=== PATIENT | male | born 1940 | race Caucasian/White ===

== ENCOUNTER 2016-04-11 10:05 | Inpatient (IN) | payer OTHER, MEDICARE ==
[~2016-04-11] VITALS: Ht 183.4 cm; Wt 95.2 kg
[~2016-04-11 10:05] MED LIST: ATEN1TAB73 PO; CALC500 PO; PRAV10 PO
[2016-04-11 10:32] VITALS: BP 139/80; PULSE 87; RESP 16; TEMP 98; O2SAT 98
[2016-04-11] MEDS ORDERED: SODIUM CHLOR 0.9% 1000 ML INJ 1,000 ML IV SCH (11:18)
--- NOTE | 2016-04-11 11:21 | PD ---
HPI Chief Complaint: GI Complaint Time Seen by Provider: 11:10 Travel History International Travel<30 days: No Contact w/Intl Traveler<30days: No Traveled to known affect area: No History of Present Illness HPI This is a 75-year-old male who has a history of ulcerative colitis and GERD who presents to the emergency department with 1 month of increasing bloody stools, reporting that he's been having 5-10 bloody stools per day, constant, moderate severity. He says that he has been increasingly lightheaded and dizzy with worsening fatigue. He has had some lower abdominal cramping. He hasn't been able to eat or drink much in the last week. He says that at night he also is having epigastric discomfort which is keeping him awake. He says this feels like his GERD. He follows with Dr. Burgos who lasted a "scope", he is not sure if it was upper or lower, in January. He currently is on prednisone but he says is not helping. He denies any nausea, vomiting, fevers or chills. He says he lost 40 pounds in the past year. PFSH Past Medical History Arthritis: Yes Asthma: No Autoimmune Disease: No Blood Disorders: No Cancer: No Cardiac Catheterization: Yes Cardiovascular Problems: Yes High Cholesterol: Yes Chest Pain: Yes COPD: No Diabetes: No Diminished Hearing: Yes (HEARING AIDES) Gastrointestinal Disorders: No Glaucoma: No Hypertension: Yes Neurologic: No Psychiatric: No Reproductive: No Respiratory: No Thyroid Disease: No PNEUMOCCOCAL Vaccine (Year): 2 Past Surgical History Cardiac Surgery: Yes (cardiac cath ) Joint Replacement: Yes (BILATERAL KNEE) Pacemaker: No Tonsillectomy: Yes Social History Alcohol Use: No Tobacco Use: No Substance Use: No Allergies-Medications (Allergen,Severity, Reaction): Coded Allergies: Iodine (Verified Allergy, Severe, SHELLFISH = ITCHING, 04/11/16) Reported Meds & Prescriptions Reported Meds & Active Scripts Active Reported [Suceavatell] 1 Gm PO BID Prednisone 20 Mg Tab 20 Mg PO BID [Omnipresol] 20 Mg PO BID Asacol HD (Mesalamine) 800 Mg Tab 1,600 Mg PO QID Swallow whole. Take on an empty stomach. Tenormin (Atenolol) 25 Mg Tab 25 Mg PO DAILY Review of Systems Except as stated in HPI: all other systems reviewed are Neg Physical Exam Narrative GENERAL: Chronically unwell-appearing. SKIN: Dry with skin tenting. HEAD: Atraumatic. Normocephalic. EYES: Pupils equal and round. No injection or drainage. ENT: Dry mucous membranes. NECK: Trachea midline. CARDIOVASCULAR: Regular rate and rhythm. No murmur appreciated. RESPIRATORY: Clear to auscultation. Breath sounds equal bilaterally. GASTROINTESTINAL: Abdomen soft, non-tender, nondistended. MUSCULOSKELETAL: No obvious deformities. NEUROLOGICAL: Awake and alert. No obvious cranial nerve deficits. Moving all extremities. PSYCHIATRIC: Appropriate mood and affect; insight and judgment normal. Data Data Last Documented VS Vital Signs Date Time Temp Pulse Resp B/P Pulse Ox O2 Delivery O2 Flow Rate FiO2 04/11/16 11:33 99 Room Air 04/11/16 10:32 98.0 87 16 139/80 Orders Complete Blood Count With Diff (04/11/16 11:18) Comprehensive Metabolic Panel (04/11/16 11:18) Lactic Acid (04/11/16 11:18) Prothrombin Time / Inr (Pt) (04/11/16 11:18) Act Partial Throm Time (Ptt) (04/11/16 11:18) Urinalysis - C+S If Indicated (04/11/16 11:18) Iv Access Insert/Monitor (04/11/16 11:18) Ecg Monitoring (04/11/16 11:18) Oximetry (04/11/16 11:18) Sodium Chlor 0.9% 1000 Ml Inj (Ns 1000 M (04/11/16 11:18) Sodium Chloride 0.9% Flush (Ns Flush) (04/11/16 11:30) Electrocardiogram (04/11/16 ) Troponin I (04/11/16 11:18) Type And Screen (04/11/16 11:18) Ciprofloxacin 400 Mg Premix (Cipro 400 M (04/11/16 12:45) Metronidazole 500 Mg Inj (Flagyl 500 Mg (04/11/16 12:45) Methylprednisolone So Succ Inj (Solumedr (04/11/16 12:45) Admit Order (Ed Use Only) (04/11/16 12:45) Labs Laboratory Tests Test 04/11/16 04/11/16 04/11/16 11:59 12:03 12:14 White Blood Count 15.1 TH/MM3 Red Blood Count 3.84 MIL/MM3 Hemoglobin 9.8 GM/DL Hematocrit 29.8 % Mean Corpuscular Volume 77.7 FL Mean Corpuscular Hemoglobin 25.5 PG Mean Corpuscular Hemoglobin 32.8 % Concent Red Cell Distribution Width 15.5 % Platelet Count 582 TH/MM3 Mean Platelet Volume 7.2 FL Neutrophils (%) (Auto) 93.3 % Lymphocytes (%) (Auto) 3.2 % Monocytes (%) (Auto) 1.8 % Eosinophils (%) (Auto) 0.0 % Basophils (%) (Auto) 1.7 % Neutrophils # (Auto) 14.0 TH/MM3 Lymphocytes # (Auto) 0.5 TH/MM3 Monocytes # (Auto) 0.3 TH/MM3 Eosinophils # (Auto) 0.0 TH/MM3 Basophils # (Auto) 0.3 TH/MM3 CBC Comment DIFF FINAL Differential Comment Prothrombin Time 11.1 SEC Prothromb Time International 1.0 RATIO Ratio Activated Partial 25.4 SEC Thromboplast Time Sodium Level 139 MEQ/L Potassium Level 4.1 MEQ/L Chloride Level 105 MEQ/L Carbon Dioxide Level 25.5 MEQ/L Anion Gap 9 MEQ/L Blood Urea Nitrogen 15 MG/DL Creatinine 0.97 MG/DL Estimat Glomerular Filtration 76 ML/MIN Rate Random Glucose 105 MG/DL Calcium Level 8.1 MG/DL Total Bilirubin 0.4 MG/DL Aspartate Amino Transf 8 U/L (AST/SGOT) Alanine Aminotransferase 12 U/L (ALT/SGPT) Alkaline Phosphatase 54 U/L Troponin I 0.10 NG/ML Total Protein 6.2 GM/DL Albumin 2.6 GM/DL Lactic Acid Level 1.5 mmol/L Urine Collection Type CLEAN CATCH Urine Color YELLOW Urine Turbidity CLEAR Urine pH 6.0 Urine Specific [place] 1.008 Urine Protein NEG mg/dL Urine Glucose (UA) NEG mg/dL Urine Ketones NEG mg/dL Urine Occult Blood NEG Urine Nitrite NEG Urine Bilirubin NEG Urine Leukocyte Esterase NEG Urine RBC 0-3 /hpf Urine Squamous Epithelial 0-5 /hpf Cells Microscopic Urinalysis Comment CULT NOT INDICATED Urine Collection Time 12:14 [facility] Medical Decision Making Medical Screen Exam Complete: Yes Emergency Medical Condition: Yes Medical Record Reviewed: Yes (patient has had a mildly elevated troponin of 0.11 to .13 back in 2003) Interpretation(s) Afebrile, no tachycardia, normotensive Leukocytosis with left shift Hemoglobin is 9.8 Thrombocytosis Electrolytes are reassuring Troponin is 0.1 Lactic acid is 1.5 Urinalysis demonstrates infection Differential Diagnosis Ulcerative colitis, anemia, gastritis, peptic ulcer disease, sepsis, dehydration Narrative Course This is an unfortunate 75-year-old male who has a history of severe ulcerative colitis who presents to the emergency department with persistent loose bloody stools and poor oral intake. He says that he has been increasingly weak and lethargic over the past week and he has been unable to eat or drink. He was placed on a monitor and an IV was established. Labs were obtained which demonstrated a leukocytosis likely in the setting of prednisone. He is also anemic with a hemoglobin of 9.8. I think the patient requires IV steroids, GI consultation and admission for IV hydration given his age and male appearance. I spoke to Dr. Franklin who will admit the patient under the [facility] service. Physician Communication Physician Communication Discussed with Dr. Franklin Diagnosis Primary Impression: Ulcerative colitis Qualified Code: K51.911 - Ulcerative colitis with rectal bleeding, unspecified location Admitting Information Admitting Physician Requests: Admit Rosalie Brennan MD Apr 11, 2016 11:21
[2016-04-11] MEDS ORDERED: SODIUM CHLORIDE 0.9% FLUSH 5 ML FLUSH IVF PRN (11:30)
[2016-04-11 11:33] VITALS: O2SAT 99
[2016-04-11] MEDS ORDERED: PRED20 PO (11:43)
[2016-04-11] MEDS ORDERED: [UNRECOGNIZED DRUG - OTHER] PO (11:43)
[2016-04-11] MEDS ORDERED: ASAC800T PO (11:43)
[2016-04-11] MEDS ORDERED: ATEN1TAB73 PO (11:43)
[2016-04-11] MEDS ORDERED: [UNRECOGNIZED DRUG - OTHER] PO (11:43)
[2016-04-11 12:19] LABS: BASOPHIL # 0.3 TH/MM3 (0-0.2); BASOPHIL % 1.7 % (0.0-2.0); HEMATOCRIT 29.8 % (39.0-51.0); LYMPH % 3.2 % (9.0-44.0); LYMPHOCYTE # 0.5 TH/MM3 (1.0-4.8); MEAN CELL VOLUME 77.7 FL (80.0-100.0); MEAN CORPUSCULAR HEMOGLOBIN 25.5 PG (27.0-34.0); MEAN CORPUSCULAR HGB CONC 32.8 % (32.0-36.0); MONO % 1.8 % (0.0-8.0); NEUT % 93.3 % (16.0-70.0); PLATELET COUNT 582 TH/MM3 (150-450); RED BLOOD COUNT 3.84 MIL/MM3 (4.50-5.90); RED CELL DISTRIBUTION WIDTH 15.5 % (11.6-17.2); WHITE BLOOD COUNT 15.1 TH/MM3 (4.0-11.0)
[2016-04-11 12:20] LABS: HEMO FLAGS DIFF FINAL
[2016-04-11 12:22] LABS: BLOOD, URINE NEG (NEG); GLUCOSE,URINE NEG (NEG); KETONE, URINE NEG (NEG); NITRITE,URINE NEG (NEG)
[2016-04-11 12:27] LABS: COMMENT (UR) CULT NOT INDICATED; CULTURE IF INDICATED CULT NOT INDICATED; METHOD OF COLLECTION CLEAN CATCH; RBC, URINE 0-3 /hpf (0-3); SQUAMOUS EPITHELIAL CELL URINE 0-5 /hpf (0-5); URINE COLOR YELLOW (YELLW/STRAW)
[2016-04-11 12:28] LABS: CHLORIDE 105 MEQ/L (98-107); POTASSIUM 4.1 MEQ/L (3.5-5.1); SODIUM (NA) 139 MEQ/L (136-145)
[2016-04-11 12:31] LABS: ANION GAP 9 MEQ/L (5-15); BICARBONATE 25.5 MEQ/L (21.0-32.0); BLOOD UREA NITROGEN 15 MG/DL (7-18)
[2016-04-11 12:33] LABS: APTT (PATIENT) 25.4 SEC (24.3-30.1); PROTHROMBIN TIME - PATIENT 11.1 SEC (9.8-11.6)
[2016-04-11 12:34] LABS: ALT (GPT) 12 U/L (12-78); AST (GOT) 8 U/L (15-37)
[2016-04-11 12:35] LABS: GLOMERULAR FILTRATION RATE 76 ML/MIN (>89)
[2016-04-11 12:36] LABS: TOTAL BILIRUBIN ADULT 0.4 MG/DL (0.2-1.0)
[2016-04-11 12:37] LABS: ALKALINE PHOSPHATASE 54 U/L (45-117)
[2016-04-11] MEDS ORDERED: methylPREDNISolone SOD SUCC 125 MG/2 ML VIAL IV PUSH ONE (12:45)
[2016-04-11] MEDS ORDERED: CIPROFLOXACIN 400 MG PREMIX 200 ML IV ONE (12:45)
[2016-04-11] MEDS ORDERED: metroNIDAZOLE 500 MG INJ 100 ML IV ONE (12:45)
[2016-04-11] MEDS ORDERED: ONDANSETRON HCL 4 MG/2 ML VIAL IV PRN (13:15)
[2016-04-11] MEDS ORDERED: SODIUM CHLORIDE 0.9% FLUSH 5 ML FLUSH FLUSH PRN (13:15)
[2016-04-11 16:00] VITALS: BP 160/70; PULSE 86; RESP 18; TEMP 98.2; O2SAT 95
--- NOTE | 2016-04-11 16:05 | HHI.HP ---
HPI Service [facility] Hospitalists Primary Care Physician Isreal Jade MD Admission Diagnosis ulcerative colitis Chief Complaint: bloody stool, weight loss, UC flare Travel History International Travel<30 Days: No Contact w/Intl Traveler <30 Da: No Traveled to Known Affected Are: No History of Present Illness This is a 75-year-old male who has a history of ulcerative colitis diagnosed approximately 25 years ago and GERD who presents to the emergency department with 1 month of increasing bloody stools, reporting that he's been having 5-10 bloody stools per day, constant, moderate severity. He says that he has been increasingly lightheaded and dizzy with worsening fatigue. He has had some lower abdominal cramping and actually more reflux lately as well. He hasn't been able to eat or drink much in the last week. He says that at night he also is having epigastric discomfort which is keeping him awake. The loose stools actually awaken him at night as well. The blood in the stool seems to be worse at night and less during the day. He follows with Dr. Burgos in [place] for GI issues. He reportedly has been referred to [facility] due to refractory ulcerative colitis and GERD.. He currently is on prednisone and Asacol but he says is not helping. He denies any nausea, vomiting, fevers or chills. He says he lost 40 pounds in the past year. No hemoptysis or hematemesis. No fevers or chills. Review of some of his outpatient labs from February revealed CRP in the 70s. Review of Systems Constitutional: COMPLAINS OF: Fatigue, Weight loss, Dizziness, DENIES: Diaphoretic episodes, Fever, Weight gain, Chills, Change in appetite, Night Sweats Eyes: DENIES: Blurred vision, Diplopia, Eye inflammation, Eye pain, Vision loss , Photosensitivity, Double Vision Ears, nose, mouth, throat: DENIES: Tinnitus, Hearing loss, Vertigo, Nasal discharge, Oral lesions, Throat pain, Hoarseness, Ear Pain, Running Nose, Epistaxis, Sinus Pain, Toothache, Odynophagia Respiratory: DENIES: Apneas, Cough, Snoring, Wheezing, Hemoptysis, Sputum production, Shortness of breath Cardiovascular: COMPLAINS OF: Dyspnea on Exertion, DENIES: Chest pain, Palpitations, Syncope, PND, Lower Extremity Edema, Orthopnea, Claudication Gastrointestinal: COMPLAINS OF: Abdominal pain, Bloody stools, BRB per rectum, Diarrhea, GERD, Nausea, Reflux, DENIES: Black stools, Constipation, Vomiting, Difficulty Swallowing, Anorexia, See HPI Musculoskeletal: COMPLAINS OF: Joint pain Integumentary: DENIES: Abnormal pigmentation, Nail changes, Pruritus, Rash Hematologic/lymphatic: DENIES: Bruising, Lymphadenopathy Immunologic/allergic: DENIES: Eczema, Urticaria Neurologic: DENIES: Abnormal gait, Headache, Localized weakness, Paresthesias, Seizures, Speech Problems, Tremor, Poor Balance Psychiatric: DENIES: Anxiety, Confusion, Mood changes, Depression, Hallucinations, Agitation, Suicidal Ideation, Homicidal Ideation, Delusions, History of Bipolar, History of Schizophrenia Past Family Social History Past Medical History Ulcerative colitis GERD Lumbar degenerative disc disease Osteoarthritis Hypertension Past Surgical History Bilateral total knee arthroplasty around 1994 Squamous cell carcinoma removed from the right posterior neck with subsequent radiation therapy and then in May 2015 at [facility] Lumbar disc surgery in 2015 Multiple colonoscopies and EGDs with most recent done in late 2015 per his report. Reported Medications Sucralfate 1 Gm PO BID Prednisone 20 Mg Tab 20 Mg PO BID Prilosec 20 Mg PO BID Asacol HD (Mesalamine) 800 Mg Tab 1,600 Mg PO QID Swallow whole. Take on an empty stomach. Tenormin (Atenolol) 25 Mg Tab 25 Mg PO DAILY Allergies: Coded Allergies: Iodine (Verified Allergy, Severe, SHELLFISH = ITCHING, 04/11/16) Family History No history of colitis or colon cancer Brother in his mid 50s of an abdominal aortic aneurysm Social History Denies Tobacco, alcohol or illicit drugs Visit his that admitted for 30 years is his third marriage Previously was an air navigator in the but retired from [employer] Originally from [place] Physical Exam Vital Signs Vital Signs Date Time Temp Pulse Resp B/P Pulse Ox O2 Delivery O2 Flow Rate FiO2 04/11/16 11:33 99 Room Air 04/11/16 10:32 98.0 87 16 139/80 98 Physical Exam GENERAL: This is a well-nourished, well-developed patient, in no apparent distress. Quite pleasant and jovial. SKIN: No rashes, ecchymoses or lesions. Cool and dry. Right posterior neck with postsurgical scarring. HEAD: Atraumatic. Normocephalic. No temporal or scalp tenderness. EYES: Pupils equal round and reactive. Extraocular motions intact. No scleral icterus. No injection or drainage. ENT: Nose without bleeding, purulent drainage or septal hematoma. Airway patent. NECK: Trachea midline. No JVD or lymphadenopathy. Supple, nontender, no meningeal signs. Right posterior neck as noted. CARDIOVASCULAR: Regular rate and rhythm without murmurs, gallops, or rubs. RESPIRATORY: Clear to auscultation. Breath sounds equal bilaterally. No wheezes , rales, or rhonchi. GASTROINTESTINAL: Abdomen soft, nondistended. Slight tenderness to palpation in lower abdomen. Bowel sounds slightly hyperactive. No hepato-splenomegaly, or palpable masses. No guarding. MUSCULOSKELETAL: Extremities without clubbing, cyanosis, or edema. No joint tenderness, effusion, or edema noted. No calf tenderness. NEUROLOGICAL: Awake and alert. Cranial nerves II through XII intact. Motor and sensory grossly within normal limits. Five out of 5 muscle strength in all muscle groups. Normal speech. Laboratory Laboratory Tests Test 04/11/16 04/11/16 04/11/16 04/11/16 11:59 12:03 12:05 12:14 White Blood Count 15.1 Red Blood Count 3.84 Hemoglobin 9.8 Hematocrit 29.8 Mean Corpuscular Volume 77.7 Mean Corpuscular Hemoglobin 25.5 Mean Corpuscular Hemoglobin 32.8 Concent Red Cell Distribution Width 15.5 Platelet Count 582 Mean Platelet Volume 7.2 Neutrophils (%) (Auto) 93.3 Lymphocytes (%) (Auto) 3.2 Monocytes (%) (Auto) 1.8 Eosinophils (%) (Auto) 0.0 Basophils (%) (Auto) 1.7 Neutrophils # (Auto) 14.0 Lymphocytes # (Auto) 0.5 Monocytes # (Auto) 0.3 Eosinophils # (Auto) 0.0 Basophils # (Auto) 0.3 CBC Comment DIFF FINAL Differential Comment Prothrombin Time 11.1 Prothromb Time International 1.0 Ratio Activated Partial 25.4 Thromboplast Time Sodium Level 139 Potassium Level 4.1 Chloride Level 105 Carbon Dioxide Level 25.5 Anion Gap 9 Blood Urea Nitrogen 15 Creatinine 0.97 Estimat Glomerular Filtration 76 Rate Random Glucose 105 Calcium Level 8.1 Total Bilirubin 0.4 Aspartate Amino Transf 8 (AST/SGOT) Alanine Aminotransferase 12 (ALT/SGPT) Alkaline Phosphatase 54 Troponin I 0.10 Total Protein 6.2 Albumin 2.6 Lactic Acid Level 1.5 Blood Type A NEGATIVE Antibody Screen NEGATIVE Urine Collection Type CLEAN CATCH Urine Color YELLOW Urine Turbidity CLEAR Urine pH 6.0 Urine Specific [place] 1.008 Urine Protein NEG Urine Glucose (UA) NEG Urine Ketones NEG Urine Occult Blood NEG Urine Nitrite NEG Urine Bilirubin NEG Urine Leukocyte Esterase NEG Urine RBC 0-3 Urine Squamous Epithelial 0-5 Cells Microscopic Urinalysis Comment CULT NOT INDICATED Urine Collection Time 12:14 Result Diagram: 04/11/16 1159 04/11/16 1159 Assessment and Plan Problem List: (1) Ulcerative colitis Status: Chronic Plan: Patient with acute flare of chronic ulcerative colitis. He has been losing blood and has symptomatic anemia reportedly. His hemoglobin is approximately 1 unit lower than it was a month ago. We'll have GI see the patient. Follow hemoglobin. Vital signs stable. Reportedly has been referred to [facility] (2) GERD (gastroesophageal reflux disease) Status: Chronic Plan: Continue PPI and Carafate. GI to see the patient. (3) Hypertension Status: Chronic Plan: Good control. Continue medication. Code Status Full Discussed Condition With Patient Physician Certification 2 Midnight Certification Type: Admission for Inpatient Services Order for Inpatient Services The services are ordered in accordance with Medicare regulations or non- Medicare payer requirements, as applicable. In the case of services not specified as inpatient-only, they are appropriately provided as inpatient services in accordance with the 2-midnight benchmark. Estimated LOS (days): 2 days is the estimated time the patient will need to remain in the hospital, assuming treatment plan goals are met and no additional complications. Post-Hospital Plan: Home Problem Qualifiers (1) Ulcerative colitis: Qualified Code: K51.911 - Ulcerative colitis with rectal bleeding, unspecified location (2) Hypertension: Qualified Code: I10 - Essential hypertension Diego Franklin PhD Apr 11, 2016 16:05
[2016-04-11] MEDS: MESALAMINE HD 800 MG DELAYED RELEASE TAB PO SCH ×2 (17:36→21:00)
[2016-04-11 20:00] VITALS: BP 146/80; PULSE 86; RESP 20; TEMP 96.7; O2SAT 97
[2016-04-11] MEDS ORDERED: PEG (High)/E-LYTE SOLN 4000 ML BTL PO ONE (20:15)
[2016-04-11] MEDS: SUCRALFATE 1 GM TAB PO SCH (21:00)
[2016-04-11] MEDS: SODIUM CHLORIDE 0.9% FLUSH 5 ML FLUSH FLUSH SCH (21:00)
[2016-04-11] MEDS: FAMOTIDINE 20 MG TAB PO SCH (21:00)
[2016-04-11] MEDS: PANTOPRAZOLE SOD 40 MG DELAYED RELEASE TAB PO SCH (21:00)
[2016-04-12] VITALS (8 sets, daily range): BP systolic 126–142; BP diastolic 65–75; PULSE 60–88; RESP 16–20; TEMP 96.3–98; O2SAT 95–100
[2016-04-12] MEDS: SUCRALFATE 1 GM TAB PO SCH ×4 (06:38→20:56)
[2016-04-12 07:04] LABS: AUTOMATED NEUTROPHIL # 10.9 TH/MM3 (1.8-7.7); BASOPHIL # 0.1 TH/MM3 (0-0.2); BASOPHIL % 0.5 % (0.0-2.0); EOSINOPHIL % 0.1 % (0.0-4.0); HEMATOCRIT 27.6 % (39.0-51.0); LYMPH % 9.2 % (9.0-44.0); LYMPHOCYTE # 1.2 TH/MM3 (1.0-4.8); MEAN CELL VOLUME 78.5 FL (80.0-100.0); MEAN CORPUSCULAR HEMOGLOBIN 25.2 PG (27.0-34.0); MEAN CORPUSCULAR HGB CONC 32.2 % (32.0-36.0); MONO % 5.7 % (0.0-8.0); NEUT % 84.5 % (16.0-70.0); PLATELET COUNT 594 TH/MM3 (150-450); RED BLOOD COUNT 3.52 MIL/MM3 (4.50-5.90); RED CELL DISTRIBUTION WIDTH 15.7 % (11.6-17.2); WHITE BLOOD COUNT 12.9 TH/MM3 (4.0-11.0)
[2016-04-12 07:14] LABS: HEMO FLAGS DIFF FINAL
[2016-04-12 07:17] LABS: CHLORIDE 106 MEQ/L (98-107); POTASSIUM 3.9 MEQ/L (3.5-5.1); SODIUM (NA) 140 MEQ/L (136-145)
[2016-04-12 07:20] LABS: ANION GAP 9 MEQ/L (5-15); BICARBONATE 25.4 MEQ/L (21.0-32.0)
[2016-04-12 07:21] LABS: BLOOD UREA NITROGEN 14 MG/DL (7-18)
[2016-04-12 07:23] LABS: ALT (GPT) 10 U/L (12-78)
[2016-04-12 07:24] LABS: AST (GOT) 7 U/L (15-37); GLOMERULAR FILTRATION RATE 77 ML/MIN (>89)
[2016-04-12 07:25] LABS: TOTAL BILIRUBIN ADULT 0.3 MG/DL (0.2-1.0)
[2016-04-12 07:26] LABS: ALKALINE PHOSPHATASE 48 U/L (45-117)
[2016-04-12] MEDS ORDERED: DIATRIZOATE MEGLUM/DIATRIZOATE SOD 9 ML CUP PO ONE (08:00)
--- NOTE | 2016-04-12 08:00 | HHI.PR ---
Subjective Remarks Feeling somewhat stronger this morning. Underwent prep for panendoscopy. No blood in bowel movement overnight. Objective Vitals Vital Signs Date Time Temp Pulse Resp B/P Pulse Ox O2 Delivery O2 Flow Rate FiO2 04/12/16 04:00 96.5 78 20 136/73 100 04/12/16 00:00 96.3 75 20 131/74 99 04/11/16 20:00 96.7 86 20 146/80 97 04/11/16 16:00 98.2 86 18 160/70 95 04/11/16 11:33 99 Room Air 04/11/16 10:32 98.0 87 16 139/80 98 04/11/16 04/11/16 04/12/16 15:00 23:00 07:00 Intake Total 4770 ml 0 ml Balance 4770 ml 0 ml Intake Oral 4770 ml 0 ml # Voids 5 2 # Bowel Movements 10 8 GENERAL: Alert and oriented. No acute distress. SKIN: Warm and dry. HEAD: Normocephalic. EYES: No scleral icterus. No injection or drainage. NECK: Supple, trachea midline. No JVD or lymphadenopathy. CARDIOVASCULAR: Regular rate and rhythm without murmurs, gallops, or rubs. RESPIRATORY: Breath sounds equal bilaterally. No accessory muscle use. GASTROINTESTINAL: Abdomen soft, nondistended. Mild tenderness to palpation in lower abdomen. No guarding or rebound. Bowel sounds normal. MUSCULOSKELETAL: No cyanosis, or edema. BACK: No CVA tenderness. Result Diagram: 04/12/16 0650 04/12/16 0650 Urinary Catheter: No Vascular Central Line Catheter: No A/P Problem List: (1) Ulcerative colitis Status: Chronic Plan: Patient with acute flare of chronic ulcerative colitis. He has been losing blood and has symptomatic anemia reportedly. His hemoglobin is approximately 1 unit lower than it was a month ago. GI has seen the patient and is planning on panendoscopy later today. Reportedly has been referred to [facility] (2) GERD (gastroesophageal reflux disease) Status: Chronic Plan: Continue PPI and Carafate. Panendoscopy later today. (3) Hypertension Status: Chronic Plan: Good control. Continue medication. Discharge Planning Hopefully discharge in 1-2 days Problem Qualifiers (1) Ulcerative colitis: Qualified Code: K51.911 - Ulcerative colitis with rectal bleeding, unspecified location (2) Hypertension: Qualified Code: I10 - Essential hypertension Rigoberto,Diego J PhD Apr 12, 2016 08:00
[2016-04-12] MEDS: FAMOTIDINE 20 MG TAB PO SCH ×2 (08:12→20:56)
[2016-04-12] MEDS: PANTOPRAZOLE SOD 40 MG DELAYED RELEASE TAB PO SCH ×2 (08:12→20:56)
[2016-04-12] MEDS: SODIUM CHLORIDE 0.9% FLUSH 5 ML FLUSH FLUSH SCH ×2 (08:13→20:54)
--- NOTE | 2016-04-12 08:53 | MB ---
cc: MARIBETH SWANN M.D., WESLEY M.D. GUIRGIS, WAGID F. M.D. DATE OF CONSULTATION: 04/11/2016 REASON FOR CONSULTATION Rectal bleeding, reflux disease, dysphagia. The patient has a history of ulcerative colitis. HISTORY OF PRESENT ILLNESS Mr. Arenas is a 75-year-old gentleman who states he has had ulcerative colitis for over 25 years. Recently he has been having significant chest discomfort and reflux disease as well. He was seeing Dr. Garza in [place], states he had an EGD and colonoscopy in November. He is unclear about the findings. He says his symptoms have continued unabated so he was referred to the [facility]. He does not have an appointment yet but had a referral. He states there was some talk of starting him on medicine which he thinks as azathioprine but this was never done. He does not recall any discussion of mono clonal antibodies , or Remicade with him. REVIEW OF SYSTEMS Currently he has had no bleeding, no abdominal pain. His major symptom is chest discomfort and reflux disease. He feels a lump in his low esophagus. PAST MEDICAL HISTORY 1. Ulcerative colitis. 2. Reflux disease. 3. Osteoarthritis. 4. Hypertension. PAST SURGICAL HISTORY 1. Knee surgery. 2. Squamous cell carcinoma removed in May from his neck. 3. Lumbar surgery. 4. Multiple EGDs and colonoscopies, last one in November 2015. MEDICATIONS 1. Carafate. 2. Prednisone. 3. Prilosec. 4. Asacol. 5. Tenormin. ALLERGIES IODINE. FAMILY HISTORY Noncontributory. SOCIAL HISTORY No tobacco. No alcohol. PHYSICAL EXAMINATION GENERAL: A well-nourished man in no apparent distress. VITAL SIGNS: Stable. HEAD AND NECK: Anicteric sclera. CHEST: Bilateral air entry with rales. ABDOMEN: Soft, nontender. Bowel sounds are present. DIRECTOR CUSTOM: Nonfocal. RECTAL: Deferred at this time. LABORATORY DATA labs reveal a white cell count of 15,000, hemoglobin 9.8. Creatinine is 0.97. Liver function tests are normal. IMPRESSION 1. Ulcerative colitis. 2. Reflux disease. RECOMMENDATIONS For reflux he currently has Protonix ordered q.12h. I would recommend adding ranitidine 150 mg at bedtime. EGD and colonoscopy discussed with him. This will be scheduled for tomorrow. GoLYTELY prep will be used. CT of the abdomen and pelvis also recommended. Further recommendations to follow based on the above. Thank you for this referral. MD DEEPA Gerber/YUSEF /8:10 PM /8:35 AM TIESHA
[2016-04-12] MEDS: MESALAMINE HD 800 MG DELAYED RELEASE TAB PO SCH ×4 (09:01→20:56)
[2016-04-12] MEDS: ATENOLOL 25 MG TAB PO SCH (09:01)
[2016-04-12] MEDS ORDERED: INFLUENZA VIRUS VACCINE (QUADRIVALENT) 0.5 ML SYR IM ONE (10:00)
--- NOTE | 2016-04-12 14:33 | RADHPO ---
EXAM DATE/TIME: 04/12/2016 12:37 [place] COMPARISON: No previous studies available for comparison. INDICATIONS : Upper abdominal pain. ORAL CONTRAST: Prescribed oral contrast ingested. RADIATION DOSE: 18.19 CTDIvol (mGy) MEDICAL HISTORY : Carcinoma, squamous cell. Gastroesophageal reflux disease. Cardiovascular diseaseHypertension. SURGICAL HISTORY : None. ENCOUNTER: Initial ACUITY: 1 day PAIN SCALE: 3/10 LOCATION: upper quadrant TECHNIQUE: Volumetric scanning of the abdomen and pelvis was performed. Using automated exposure control and ad justment of the mA and/or kV according to patient size, radiation dose was kept as low as reasonably achievable to obtain optimal diagnostic quality images. FINDINGS: LOWER LUNGS: The visualized lower lungs are clear. LIVER: Homogeneous density without lesion. There is no dilation of the biliary tree. No calcified gallston es. Gallbladder seen as a luminal structure without wall thickening SPLEEN: Normal size without lesion. PANCREAS: Within normal limits. KIDNEYS: Normal in size and shape. There is no mass, stone, or hydronephrosis. ADRENAL GLANDS: Within normal limits. VASCULAR: There is no aortic aneurysm. BOWEL/MESENTERY: There are long segment areas suggestive of circumferential bowel wall thickening of the colon extensi vely in the sigmoid region mid and proximally as well as the descending and transverse colon with farheen e pericolonic inflammatory change particularly around the sigmoid. Findings suggest colitis. ABDOMINAL WALL: Within normal limits. RETROPERITONEUM: There is no lymphadenopathy. BLADDER: No wall thickening or mass. REPRODUCTIVE: Within normal limits. INGUINAL: There is no lymphadenopathy or hernia. MUSCULOSKELETAL: Remote compression L1 with kyphoplasty and there is degenerative facet arthritic changes of the lower lumbar spine. CONCLUSION: Colon appears abnormal suggesting long segment of concentric bowel wall thickening and possible peric olonic inflammatory change most consistent with colitis. Remote L1 compression and kyphoplasty and degenerati ve facet arthritic changes of the lower lumbar spine. Tim Cortes MD on April 12, 2016 at 14:27 Board Certified Radiologist. This report was verified electronically.
[2016-04-12] MEDS ORDERED: PROPOFOL 200 MG/20 ML AMP IV ONE (16:00)
--- NOTE | 2016-04-12 16:58 | EKG ---
Date Performed: 04/11/2016 Time Performed: 11:28:04 PTAGE: 75 years EKG: Sinus rhythm . IV conduction defect Septal T wave changes are nonspecific Compared to prior tracing no significant change Abnormal ECG PREVIOUS TRACING : 01/31/2010 22.08 DOCTOR: Trinity Hoover Interpretating Date/Time 04/12/2016 16:55:36
[2016-04-12] MEDS: methylPREDNISolone SOD SUCC 40 MG/1 ML VIAL IV PUSH SCH ×2 (17:37→22:27)
[2016-04-13] VITALS (9 sets, daily range): BP systolic 102–153; BP diastolic 63–85; PULSE 81–114; RESP 14–18; TEMP 96.4–97.9; O2SAT 94–98
[2016-04-13] MEDS: methylPREDNISolone SOD SUCC 40 MG/1 ML VIAL IV PUSH SCH ×3 (05:59→22:10)
[2016-04-13] MEDS: SUCRALFATE 1 GM TAB PO SCH ×4 (06:02→22:12)
--- NOTE | 2016-04-13 08:12 | HHI.PR ---
Subjective Remarks Feeling about the same. Still with some cramping. Had several bloody stools overnight. We discussed the results of CT scan, EGD and colonoscopy from yesterday. He would like to advance diet. Objective Vitals Vital Signs Date Time Temp Pulse Resp B/P Pulse Ox O2 Delivery O2 Flow Rate FiO2 04/13/16 00:00 97.2 82 18 123/70 98 04/12/16 20:00 97.1 76 18 126/72 97 04/12/16 20:00 95 21 04/12/16 18:07 99 21 04/12/16 16:04 67 16 121/55 98 04/12/16 16:00 96.7 64 18 134/70 04/12/16 15:54 70 16 118/62 98 04/12/16 15:45 98.1 72 15 100/51 100 04/12/16 14:50 98.0 60 16 142/65 100 04/12/16 12:00 97.7 88 16 133/72 97 04/12/16 04/12/16 04/13/16 15:00 23:00 07:00 Intake Total 960 ml 250 ml 480 ml Balance 960 ml 250 ml 480 ml Intake Oral 960 ml 480 ml Other 250 ml # Voids 3 5 # Bowel Movements 0 GENERAL: Alert and oriented. No acute distress. Pleasant and cooperative. SKIN: Warm and dry. HEAD: Normocephalic. EYES: No scleral icterus. No injection or drainage. NECK: Supple, trachea midline. No JVD or lymphadenopathy. CARDIOVASCULAR: Regular rate and rhythm without murmurs, gallops, or rubs. RESPIRATORY: Breath sounds equal bilaterally. No accessory muscle use. GASTROINTESTINAL: Abdomen soft, nondistended. Minimal tenderness to palpation in lower abdomen. No guarding or rebound. Bowel sounds slightly hyperactive. MUSCULOSKELETAL: No cyanosis, or edema. BACK: No CVA tenderness. Result Diagram: 04/12/16 0650 04/12/16 0650 Urinary Catheter: No Vascular Central Line Catheter: No A/P Problem List: (1) Ulcerative colitis Status: Chronic Plan: Patient with acute flare of chronic ulcerative colitis. He has been losing blood and has symptomatic anemia reportedly. His hemoglobin is approximately 1 unit lower than it was a month ago. Repeat CBC this morning. CT scan, EGD and colonoscopy from 04/12/16 reviewed with patient. Advance diet. Reportedly has been referred to [facility] (2) GERD (gastroesophageal reflux disease) Status: Chronic Plan: Continue PPI and Carafate. Panendoscopy later today. (3) Hypertension Status: Chronic Plan: Good control. Continue medication. Discharge Planning Hopefully discharge in 1-2 days He will likely need further workup a tertiary care center. Problem Qualifiers (1) Ulcerative colitis: Qualified Code: K51.911 - Ulcerative colitis with rectal bleeding, unspecified location (2) Hypertension: Qualified Code: I10 - Essential hypertension Diego Franklin PhD Apr 13, 2016 08:11
[2016-04-13 09:15] LABS: AUTOMATED NEUTROPHIL # 11.4 TH/MM3 (1.8-7.7); BASOPHIL # 0.1 TH/MM3 (0-0.2); BASOPHIL % 0.8 % (0.0-2.0); HEMATOCRIT 31.5 % (39.0-51.0); LYMPH % 2.3 % (9.0-44.0); LYMPHOCYTE # 0.3 TH/MM3 (1.0-4.8); MEAN CELL VOLUME 78.1 FL (80.0-100.0); MEAN CORPUSCULAR HEMOGLOBIN 24.7 PG (27.0-34.0); MEAN CORPUSCULAR HGB CONC 31.6 % (32.0-36.0); MONO % 1.5 % (0.0-8.0); NEUT % 95.4 % (16.0-70.0); PLATELET COUNT 628 TH/MM3 (150-450); RED BLOOD COUNT 4.03 MIL/MM3 (4.50-5.90); RED CELL DISTRIBUTION WIDTH 15.8 % (11.6-17.2)
[2016-04-13] MEDS: MESALAMINE HD 800 MG DELAYED RELEASE TAB PO SCH ×4 (09:17→21:26)
[2016-04-13] MEDS: PANTOPRAZOLE SOD 40 MG DELAYED RELEASE TAB PO SCH ×2 (09:17→21:25)
[2016-04-13] MEDS: ATENOLOL 25 MG TAB PO SCH (09:17)
[2016-04-13] MEDS: FAMOTIDINE 20 MG TAB PO SCH ×2 (09:17→21:26)
[2016-04-13] MEDS: SODIUM CHLORIDE 0.9% FLUSH 5 ML FLUSH FLUSH SCH ×2 (09:17→21:26)
[2016-04-13 09:19] LABS: HEMO FLAGS AUTO DIFF
[2016-04-13 09:51] LABS: PLATELET ESTIMATE SMEAR HIGH (NORMAL); PLATELET MORPHOLOGY NORMAL (NORMAL); SCAN/DIFF AUTO DIFF CONFIRMED
[2016-04-13 10:21] LABS: BICARBONATE 23.1 MEQ/L (21.0-32.0); POTASSIUM 3.9 MEQ/L (3.5-5.1)
--- NOTE | 2016-04-13 21:19 | HHI.GIFU ---
GI Follow-up Note Consult Follow-up Subjective: Patient laying in bed comfortably, no new complaints except Abdominal pain and some bleeding Objective: PHYSICAL EXAMINATION: Vitals signs stable No fever HEENT: Pupils round and reactive to light; normocephalic; atraumatic; no jaundice. Throat is clear. NECK: Neck is supple, no JVD, no lymphadenopathy. CHEST: Chest is clear to auscultation and percussion. CARDIAC: Regular rate and rhythm with no murmur gallop or rubs. ABDOMEN: Soft, nondistended, nontender; no hepatosplenomegaly; bowel sounds are present in all four quadrants. EXTREMITIES: No clubbing, cyanosis, or edema. SKIN: Normal; no rash; no jaundice. CAR SHIFTER: No focal deficits; alert and oriented times three. Available Data (labs, X- Rays, Procedues) : Last Impressions Abdomen/Pelvis CT 04/12/16 0000 Signed Impressions: Service Date/Time: Tuesday, April 12, 2016 12:37 - CONCLUSION: Colon appears abnormal suggesting long segment of concentric bowel wall thickening and possible pericolonic inflammatory change most consistent with colitis. Remote L1 compression and kyphoplasty and degenerative facet arthritic changes of the lower lumbar spine. Tim Cortes MD Laboratory Tests Test 04/12/16 04/13/16 06:50 09:05 White Blood Count 12.9 TH/MM3 12.0 TH/MM3 Red Blood Count 3.52 MIL/MM3 4.03 MIL/MM3 Hemoglobin 8.9 GM/DL 10.0 GM/DL Hematocrit 27.6 % 31.5 % Mean Corpuscular Volume 78.5 FL 78.1 FL Mean Corpuscular Hemoglobin 25.2 PG 24.7 PG Mean Corpuscular Hemoglobin 32.2 % 31.6 % Concent Red Cell Distribution Width 15.7 % 15.8 % Platelet Count 594 TH/MM3 628 TH/MM3 Mean Platelet Volume 7.2 FL 7.3 FL Neutrophils (%) (Auto) 84.5 % 95.4 % Lymphocytes (%) (Auto) 9.2 % 2.3 % Monocytes (%) (Auto) 5.7 % 1.5 % Eosinophils (%) (Auto) 0.1 % 0.0 % Basophils (%) (Auto) 0.5 % 0.8 % Neutrophils # (Auto) 10.9 TH/MM3 11.4 TH/MM3 Lymphocytes # (Auto) 1.2 TH/MM3 0.3 TH/MM3 Monocytes # (Auto) 0.7 TH/MM3 0.2 TH/MM3 Eosinophils # (Auto) 0.0 TH/MM3 0.0 TH/MM3 Basophils # (Auto) 0.1 TH/MM3 0.1 TH/MM3 CBC Comment DIFF FINAL AUTO DIFF Differential Comment AUTO DIFF CONFIRMED Sodium Level 140 MEQ/L 138 MEQ/L Potassium Level 3.9 MEQ/L 3.9 MEQ/L Chloride Level 106 MEQ/L 103 MEQ/L Carbon Dioxide Level 25.4 MEQ/L 23.1 MEQ/L Anion Gap 9 MEQ/L 12 MEQ/L Blood Urea Nitrogen 14 MG/DL 17 MG/DL Creatinine 0.96 MG/DL 1.30 MG/DL Estimat Glomerular Filtration 77 ML/MIN 54 ML/MIN Rate Random Glucose 87 MG/DL 199 MG/DL Calcium Level 7.7 MG/DL 8.0 MG/DL Total Bilirubin 0.3 MG/DL Aspartate Amino Transf 7 U/L (AST/SGOT) Alanine Aminotransferase 10 U/L (ALT/SGPT) Alkaline Phosphatase 48 U/L Total Protein 5.5 GM/DL Albumin 2.3 GM/DL Platelet Estimate HIGH Platelet Morphology Comment NORMAL Allergies Coded Allergies Type Severity Reaction Last Updated Verified Iodine Allergy Severe SHELLFISH = ITCHING 04/11/16 Yes Active Scripts Medications Dose Route/Sig Days Date Category Dose Instructions [Suceavatell] 1 Gm PO BID 04/11/16 Reported Prednisone 20 Mg Tab 20 Mg PO BID 04/11/16 Reported [Omnipresol] 20 Mg PO BID 04/11/16 Reported Asacol HD (Mesalamine) 800 Mg Tab 1,600 Mg PO QID 04/11/16 Reported Swallow whole. Take on an empty stomach. Tenormin (Atenolol) 25 Mg Tab 25 Mg PO DAILY 04/11/16 Reported ASSESSMENT/PLAN: seen and exmained, doing ok, still with abdominal pain and bleeding. Started on solumederol yesterday. Diet as tolerated. Ideally we would recommend biologics but due to recent h/o cancer not a good option. He is going to [place] as outpt. to discuss his options. [place] is where he was treated for his Head and neck cancer last year. If biologics not an option he would probably need colectomy. Await biopsies. Discussed with him in detail. It was a pleasure seeing Cristian Arenas. Thank you for this consult. Entered by: Leticia Hernández MD Apr 13, 2016 21:19
[2016-04-14] VITALS: BP 142/79; PULSE 72; RESP 18; TEMP 97; O2SAT 98
[2016-04-14] MEDS: methylPREDNISolone SOD SUCC 40 MG/1 ML VIAL IV PUSH SCH (06:00)
[2016-04-14] MEDS: SUCRALFATE 1 GM TAB PO SCH (06:01)
[2016-04-14 06:27] LABS: BASOPHIL # 0.2 TH/MM3 (0-0.2); BASOPHIL % 1.1 % (0.0-2.0); EOSINOPHIL % 0.1 % (0.0-4.0); HEMATOCRIT 27.1 % (39.0-51.0); LYMPH % 7.1 % (9.0-44.0); MEAN CELL VOLUME 78.9 FL (80.0-100.0); MEAN CORPUSCULAR HEMOGLOBIN 25.1 PG (27.0-34.0); MEAN CORPUSCULAR HGB CONC 31.9 % (32.0-36.0); MONO % 5.5 % (0.0-8.0); NEUT % 86.2 % (16.0-70.0); PLATELET COUNT 541 TH/MM3 (150-450); RED BLOOD COUNT 3.43 MIL/MM3 (4.50-5.90); RED CELL DISTRIBUTION WIDTH 16.4 % (11.6-17.2)
[2016-04-14 06:28] LABS: HEMO FLAGS AUTO DIFF
--- NOTE | 2016-04-14 06:33 | HHI.PR ---
Subjective Remarks Feeling much better. No bowel movement since approximate 5 PM yesterday. No hematochezia since that time either. He is desirous of discharge home and follow-up with [facility] as an outpatient. He is tolerating oral intake well and has been ambulating about the room frequently. Objective Vitals Vital Signs Date Time Temp Pulse Resp B/P Pulse Ox O2 Delivery O2 Flow Rate FiO2 04/14/16 00:00 97.0 72 18 142/79 98 04/13/16 20:00 97.2 81 18 145/73 97 04/13/16 19:45 96 21 04/13/16 16:00 97.9 85 16 102/63 96 04/13/16 15:42 97.9 85 16 102/63 96 04/13/16 13:18 96.4 86 15 138/71 96 04/13/16 08:23 96.9 85 15 153/77 97 04/13/16 08:00 96 21 04/13/16 04/13/16 04/14/16 15:00 23:00 07:00 Intake Total 1460 ml 120 ml Balance 1460 ml 120 ml Intake Oral 1460 ml 120 ml # Voids 5 # Bowel Movements 5 GENERAL: Alert and oriented. No acute distress. Pleasant and cooperative. A bit hard of hearing per baseline. SKIN: Warm and dry. HEAD: Normocephalic. EYES: No scleral icterus. No injection or drainage. NECK: Supple, trachea midline. No JVD or lymphadenopathy. CARDIOVASCULAR: Regular rate and rhythm without murmurs, gallops, or rubs. RESPIRATORY: Breath sounds equal bilaterally. No accessory muscle use. GASTROINTESTINAL: Abdomen soft, nondistended. Minimal tenderness to palpation in lower abdomen. No guarding or rebound. Bowel sounds normal. MUSCULOSKELETAL: No cyanosis, or edema. BACK: No CVA tenderness. Result Diagram: 04/14/16 0518 04/13/16 0905 Urinary Catheter: No Vascular Central Line Catheter: No A/P Problem List: (1) Ulcerative colitis Status: Chronic Plan: Patient with acute flare of chronic ulcerative colitis. CBC relatively stable. Vital signs stable. CT scan, EGD and colonoscopy from 04/12/16 reviewed with patient. Has tolerated normal diet well. We'll follow up as outpatient with [facility]. I spoke with Drs. Alatorre and Camron yesterday regarding his case. We'll try to expedite his evaluation at [facility]. His insurance company should improve his referral today for discussion with Dr. Lyon yesterday. We'll discharge home on oral steroids and his Asacol. (2) GERD (gastroesophageal reflux disease) Status: Chronic Plan: Continue PPI and Carafate. Panendoscopy done April 12 (3) Hypertension Status: Chronic Plan: Good control. Continue medication. Discharge Planning Discharge home. Follow up with [facility]. Problem Qualifiers (1) Ulcerative colitis: Qualified Code: K51.911 - Ulcerative colitis with rectal bleeding, unspecified location (2) Hypertension: Qualified Code: I10 - Essential hypertension Diego Franklin PhD Apr 14, 2016 06:33
[2016-04-14] MEDS ORDERED: FAMO20TA2 PO (06:41)
[2016-04-14] MEDS ORDERED: CARA1TAB6 PO (06:41)
[2016-04-14] MEDS ORDERED: PANT40TA3 PO (06:41)
[2016-04-14 06:49] LABS: PLATELET ESTIMATE SMEAR HIGH (NORMAL); PLATELET MORPHOLOGY NORMAL (NORMAL); SCAN/DIFF AUTO DIFF CONFIRMED
--- NOTE | 2016-04-14 06:49 | HHI.DS ---
Discharge Summary Admission Date Apr 11, 2016 at 12:46 Discharge Date: Apr 14, 2016 Admitting Diagnosis ulcerative colitis (1) Ulcerative colitis Diagnosis: Principal (2) GERD (gastroesophageal reflux disease) Diagnosis: Principal (3) Hypertension Diagnosis: Secondary Consultants Dr Rogel- GI Procedures Panendoscopy 04/12/16 Brief History This is a 75-year-old male who has a history of ulcerative colitis diagnosed approximately 25 years ago and GERD who presents to the emergency department with 1 month of increasing bloody stools, reporting that he's been having 5-10 bloody stools per day, constant, moderate severity. He says that he has been increasingly lightheaded and dizzy with worsening fatigue. He has had some lower abdominal cramping and actually more reflux lately as well. He hasn't been able to eat or drink much in the last week. He says that at night he also is having epigastric discomfort which is keeping him awake. The loose stools actually awaken him at night as well. The blood in the stool seems to be worse at night and less during the day. He follows with Dr. Burgos in [place] for GI issues. He reportedly has been referred to [facility] due to refractory ulcerative colitis and GERD.. He currently is on prednisone and Asacol but he says is not helping. He denies any nausea, vomiting, fevers or chills. He says he lost 40 pounds in the past year. No hemoptysis or hematemesis. No fevers or chills. Review of some of his outpatient labs from February revealed CRP in the 70s. CBC/BMP: 04/14/16 0518 04/13/16 0905 Significant Findings Laboratory Tests Test 04/11/16 04/12/16 04/13/16 04/14/16 11:59 06:50 09:05 05:18 White Blood Count 15.1 TH/MM3 12.9 TH/MM3 12.0 TH/MM3 14.0 TH/MM3 (4.0-11.0) (4.0-11.0) (4.0-11.0) (4.0-11.0) Red Blood Count 3.84 MIL/MM3 3.52 MIL/MM3 4.03 MIL/MM3 3.43 MIL/MM3 (4.50-5.90) (4.50-5.90) (4.50-5.90) (4.50-5.90) Hemoglobin 9.8 GM/DL 8.9 GM/DL 10.0 GM/DL 8.6 GM/DL (13.0-17.0) (13.0-17.0) (13.0-17.0) (13.0-17.0) Hematocrit 29.8 % 27.6 % 31.5 % 27.1 % (39.0-51.0) (39.0-51.0) (39.0-51.0) (39.0-51.0) Mean Corpuscular Volume 77.7 FL 78.5 FL 78.1 FL 78.9 FL (80.0-100.0) (80.0-100.0) (80.0-100.0) (80.0-100.0) Mean Corpuscular Hemoglobin 25.5 PG 25.2 PG 24.7 PG 25.1 PG (27.0-34.0) (27.0-34.0) (27.0-34.0) (27.0-34.0) Platelet Count 582 TH/MM3 594 TH/MM3 628 TH/MM3 541 TH/MM3 (150-450) (150-450) (150-450) (150-450) Neutrophils (%) (Auto) 93.3 % 84.5 % 95.4 % 86.2 % (16.0-70.0) (16.0-70.0) (16.0-70.0) (16.0-70.0) Lymphocytes (%) (Auto) 3.2 % 2.3 % 7.1 % (9.0-44.0) (9.0-44.0) (9.0-44.0) Neutrophils # (Auto) 14.0 TH/MM3 10.9 TH/MM3 11.4 TH/MM3 12.0 TH/MM3 (1.8-7.7) (1.8-7.7) (1.8-7.7) (1.8-7.7) Lymphocytes # (Auto) 0.5 TH/MM3 0.3 TH/MM3 (1.0-4.8) (1.0-4.8) Basophils # (Auto) 0.3 TH/MM3 (0-0.2) Estimat Glomerular Filtration 76 ML/MIN (>89) 77 ML/MIN (>89) 54 ML/MIN (>89) Rate Calcium Level 8.1 MG/DL 7.7 MG/DL 8.0 MG/DL (8.5-10.1) (8.5-10.1) (8.5-10.1) Aspartate Amino Transf 8 U/L (15-37) 7 U/L (15-37) (AST/SGOT) Troponin I 0.10 NG/ML (0.02-0.05) C-Reactive Protein 1.40 MG/DL (0.00-0.30) Total Protein 6.2 GM/DL 5.5 GM/DL (6.4-8.2) (6.4-8.2) Albumin 2.6 GM/DL 2.3 GM/DL (3.4-5.0) (3.4-5.0) Alanine Aminotransferase 10 U/L (12-78) (ALT/SGPT) Mean Corpuscular Hemoglobin 31.6 % 31.9 % Concent (32.0-36.0) (32.0-36.0) Platelet Estimate HIGH (NORMAL) Random Glucose 199 MG/DL (74-106) Imaging Last 72 hours Impressions Abdomen/Pelvis CT 04/12/16 0000 Signed Impressions: Service Date/Time: Tuesday, April 12, 2016 12:37 - CONCLUSION: Colon appears abnormal suggesting long segment of concentric bowel wall thickening and possible pericolonic inflammatory change most consistent with colitis. Remote L1 compression and kyphoplasty and degenerative facet arthritic changes of the lower lumbar spine. Tim Cortes MD Hospital Course Patient with chronic ulcerative colitis presented with apparent flare with increased bloody stools. His been evaluated with multiple colonoscopies over the last couple of years. He has been on various medications including steroids , Asacol, azathioprine, Enbrel without much success. He has been seen by 2 local fur glazer as well as colorectal surgeon Dr. Araya within the last couple of years. He was given IV steroids here as well as his home medications. He also complained of increasing GERD so his PPI dose was increased as well as Carafate. He was evaluated by gastroenterology and underwent panendoscopy on April 12. The EGD portion revealed esophagitis as well as some erythematous gastritis in the interim. Biopsy was performed but is still pending. The colonoscopy was more revealing demonstrating significant mucosal abnormalities in the descending colon with erythema and significant friability. Multiple pseudopolyps and granularity were noted. Fewer abnormalities were noted as the ileocecal valve was approached. Biopsies were taken and pathology is pending. Patient continued to improve after his endoscopies. He was continued on the IV steroid as well as the Asacol. Vital signs remained stable. Hemoglobin remained relatively stable in the 8.5 -9 range generally. Plan is for him to be evaluated at the [facility] in [facility] in the next few weeks. Pt Condition on Discharge: Good Discharge Disposition: Discharge Home Discharge Instructions DIET: Follow Instructions for: Heart Healthy Diet Activities you can perform: Regular-No Restrictions Follow up Referrals: Gastroenterology PCP Follow-up New Orders: CBC WITH DIFF - 1 Week New Medications: Famotidine (Famotidine) 20 Mg Tab 20 MG PO Q12H gerd #60 TAB Pantoprazole (Pantoprazole) 40 Mg Tab 40 MG PO Q12HR gerd #60 TAB Sucralfate (Carafate) 1 Gm Tab 1 GM PO ACHS gerd #120 TAB Continued Medications: Atenolol (Tenormin) 25 Mg Tab 25 MG PO DAILY Blood Pressure Management #[address] (Asacol HD) 800 Mg Tab 1600 MG PO QID Swallow whole. Take on an empty stomach. Ulcerative colitis Ref 0 TAB Prednisone (Prednisone) 20 Mg Tab 20 MG PO BID Ref 0 TAB Diego Franklin PhD Apr 14, 2016 06:49
[2016-04-14] MEDS ORDERED: PRED20 PO (06:54)
== END 2016-04-14 08:39 | disposition home or self-care (01) | DRG 387 ==
LOC: PHED 10:05 → PHEDA 12:46 → PH3A 14:23
PROVIDERS: ADMIT Family Medicine; ATTEND Family Medicine
PROC: 0DBN8ZX Excision of Sigmoid Colon, Via Natural or Artificial Opening Endoscopic, Diagnostic (ICD-10-PCS; 2016-04-12)
PROC: 0DBC8ZX Excision of Ileocecal Valve, Via Natural or Artificial Opening Endoscopic, Diagnostic (ICD-10-PCS; 2016-04-12)
PROC: 0DB68ZX Excision of Stomach, Via Natural or Artificial Opening Endoscopic, Diagnostic (ICD-10-PCS; principal; 2016-04-12 15:00)
PROC: 0DBM8ZX Excision of Descending Colon, Via Natural or Artificial Opening Endoscopic, Diagnostic (ICD-10-PCS; 2016-04-12 15:00)
DX: K51.911 Ulcerative colitis, unspecified with rectal bleeding (principal); D64.9 Anemia, unspecified; I10 Essential (primary) hypertension; K21.0 Gastro-esophageal reflux disease with esophagitis; K20.9 Esophagitis, unspecified; K29.70 Gastritis, unspecified, without bleeding; M19.90 Unspecified osteoarthritis, unspecified site; H91.90 Unspecified hearing loss, unspecified ear; M51.36 Other intervertebral disc degeneration, lumbar region; Z96.653 Presence of artificial knee joint, bilateral; Z85.828 Personal history of other malignant neoplasm of skin; Z92.3 Personal history of irradiation; Z79.52 Long term (current) use of systemic steroids
CPT/HCPCS: 74176; 80048; 80053; 81001; 83605; 84484; 85025; 85610; 85730; 86140; 86850; 86900; 86901; 88305; 88312; 93005; J2920; J2930; J7030; Q9963

== ENCOUNTER 2017-02-06 22:59 | Observation (INO) | payer MEDICARE, OTHER ==
[~2017-02-06] VITALS: Ht 188 cm; Wt 100.0 kg
[~2017-02-06 22:59] MED LIST changes: +ASAC800T PO; -CALC500 PO; +CARA1TAB6 PO; +FAMO20TA2 PO; +PANT40TA3 PO; -PRAV10 PO; +PRED20 PO; +[UNRECOGNIZED DRUG - OTHER] PO; +[UNRECOGNIZED DRUG - OTHER] PO
[2017-02-06] MEDS ORDERED: SODIUM CHLORIDE 0.9% FLUSH 10 ML FLUSH IVF PRN (23:15)
[2017-02-06] MEDS ORDERED: ASPIRIN 81 MG CHEW TAB PO ONE (23:15)
[2017-02-06 23:17] VITALS: BP 140/84; PULSE 75; RESP 18; TEMP 98.1; O2SAT 95
[2017-02-06] MEDS ORDERED: ASPI-516 CHEW (23:17)
--- NOTE | 2017-02-06 23:23 | PD ---
HPI Chief Complaint: Chest Pain Time Seen by Provider: 23:09 Travel History International Travel<30 days: No Contact w/Intl Traveler<30days: No Traveled to known affect area: No History of Present Illness HPI Patient is a 76-year-old male with history of hypertension, hyperlipidemia's, coronary artery disease with CABG 4 in April 2016, presents to emergency room with complaints of chest pain. Patient reports that he was sitting at his chair at home when he began to have chest pain. Patient reports that chest pain is substernal in nature, reports that he feels a "pressure" to his chest. He initially thought that the symptoms were due to acid reflux, that he took Nexium with no relief of symptoms. Reports that he had one episode of nausea and vomiting, reports no diaphoresis with his symptoms. Patient reports that he has history of CABG times 20 February 2017, reports that he had his CABG at [facility] in [place]. Reports that since then, he has been following up with the heart team at [facility], he is due to see a creative technologist for the first time in February 24, 2017. Patient reports that chest pain has improved while being in the emergency room, he does feel slight pressure to his chest. Patient denies any cough or congestion, denies any fever or chills, patient with no other complaints at this time. Patient reports that since his CABG, he does take a baby aspirin every single day. Reports that he doesn't take any other anticoagulants at this time. PFSH Past Medical History Arthritis: Yes Asthma: No Autoimmune Disease: No Blood Disorders: No Anxiety: Yes Depression: No Heart Rhythm Problems: Yes Cancer: Yes (squamous cell CA) Cardiac Catheterization: Yes Cardiovascular Problems: Yes High Cholesterol: Yes Chemotherapy: No Chest Pain: No Congestive Heart Failure: No COPD: No Cerebrovascular Accident: No Diabetes: No Diminished Hearing: Yes (HEARING AIDES) Endocrine: No Gastrointestinal Disorders: Yes (UC) GERD: Yes Glaucoma: No Genitourinary: No Hiatal Hernia: No Hypertension: Yes Immune Disorder: Yes (squamous cell CA) Kidney Stones: No Neurologic: No Psychiatric: No Reproductive: No Respiratory: No Migraines: No Radiation Therapy: Yes Renal Failure: No Seizures: No Sickle Cell Disease: No Sleep Apnea: Yes (use CPAP but stopped last June affect salivary glands) Thyroid Disease: No Ulcer: Yes PNEUMOCCOCAL Vaccine (Year): 2 Past Surgical History AICD: No Cardiac Surgery: Yes (cardiac cath , CABG in [address] [facility] in [facility]) Ear Surgery: No Endocrine Surgery: No Eye Surgery: No Genitourinary Surgery: No Insulin Pump: No Joint Replacement: Yes (BILATERAL KNEE) Oral Surgery: No Pacemaker: No Thoracic Surgery: No Tonsillectomy: Yes Other Surgery: Yes (SKIN CANCER REMOVAL ) Social History Alcohol Use: No Tobacco Use: No Substance Use: No Allergies-Medications (Allergen,Severity, Reaction): Coded Allergies: iodine (Unverified Allergy, Severe, SHELLFISH = ITCHING, 02/06/17) potassium iodide (Unverified Allergy, Severe, SHELLFISH = ITCHING, ) povidone-iodine (Unverified Allergy, Severe, SHELLFISH = ITCHING, 02/06/17 ) sodium iodide (Unverified Allergy, Severe, SHELLFISH = ITCHING, 02/06/17) sodium iodide (Unverified Allergy, Severe, SHELLFISH = ITCHING, 02/06/17) Reported Meds & Prescriptions Reported Meds & Active Scripts Active Prednisone 20 Mg Tab 20 Mg PO BID Carafate (Sucralfate) 1 Gm Tab 1 Gm PO ACHS Pantoprazole (Pantoprazole Sodium) 40 Mg Tab 40 Mg PO Q12HR Famotidine 20 Mg Tab 20 Mg PO Q12H Reported Aspirin 81 Mg Chew 81 Mg CHEW DAILY [Suceavatell] 1 Gm PO BID Prednisone 20 Mg Tab 20 Mg PO BID [Omnipresol] 20 Mg PO BID Asacol HD (Mesalamine) 800 Mg Tab 1,600 Mg PO QID Swallow whole. Take on an empty stomach. Tenormin (Atenolol) 25 Mg Tab 25 Mg PO DAILY Review of Systems General / Constitutional: No: Fever, Chills Eyes: No: Visual changes HENT: No: Headaches Cardiovascular: Positive: Chest Pain or Discomfort, No: Diaphoresis Respiratory: Positive: Shortness of Breath Gastrointestinal: Positive: Nausea, Vomiting, No: Abdominal Pain Genitourinary: No: Dysuria Musculoskeletal: No: Pain Skin: No Rash Neurologic: No: Weakness Psychiatric: No: Depression Endocrine: No: Polydipsia Hematologic/Lymphatic: No: Easy Bruising Physical Exam Narrative GENERAL: Moderate distress SKIN: Focused skin assessment warm/dry. HEAD: Atraumatic. Normocephalic. EYES: Pupils equal and round. No scleral icterus. No injection or drainage. ENT: No nasal bleeding or discharge. Mucous membranes pink and moist. NECK: Trachea midline. No JVD. CARDIOVASCULAR: Regular rate and rhythm. No murmur appreciated. RESPIRATORY: No accessory muscle use. Clear to auscultation. Breath sounds equal bilaterally. GASTROINTESTINAL: Abdomen soft, non-tender, nondistended. Hepatic and splenic margins not palpable. MUSCULOSKELETAL: No obvious deformities. No clubbing. No cyanosis. No edema. NEUROLOGICAL: Awake and alert. No obvious cranial nerve deficits. Motor grossly within normal limits. Normal speech. PSYCHIATRIC: Appropriate mood and affect; insight and judgment normal. Data Data Last Documented VS Vital Signs Date Time Temp Pulse Resp B/P (MAP) Pulse Ox O2 Delivery O2 Flow Rate FiO2 02/06/17 23:48 18 02/06/17 23:36 99 Room Air 02/06/17 23:32 75 150/68 (95) 02/06/17:17 98.1 Orders Orders Electrocardiogram (02/06/17 23:15) B-Type Natriuretic Peptide (02/06/17 23:15) Ckmb (Isoenzyme) Profile (02/06/17 23:15) Complete Blood Count With Diff (02/06/17 23:15) Comprehensive Metabolic Panel (02/06/17 23:15) Magnesium (Mg) (02/06/17 23:15) Prothrombin Time / Inr (Pt) (02/06/17 23:15) Act Partial Throm Time (Ptt) (02/06/17 23:15) Troponin I (02/06/17 23:15) Lipase (02/06/17 23:15) Chest, Single Ap (02/06/17 23:15) Ecg Monitoring (02/06/17 23:15) Iv Access Insert/Monitor (02/06/17 23:15) Oximetry (02/06/17 23:15) Aspirin Chew (Aspirin Chew) (02/06/17 23:15) Sodium Chloride 0.9% Flush (Ns Flush) (02/06/17 23:15) Nitroglycerin Sl (Nitrostat Sl) (02/06/17 23:15) Sodium Chlorid 0.9% 500 Ml Inj (Ns 500 M (02/07/17 00:00) Labs Laboratory Tests Test 02/06/17 23:25 White Blood Count 13.1 TH/MM3 Red Blood Count 5.08 MIL/MM3 Hemoglobin 11.8 GM/DL Hematocrit 36.8 % Mean Corpuscular Volume 72.5 FL Mean Corpuscular Hemoglobin 23.2 PG Mean Corpuscular Hemoglobin Concent 32.0 % Red Cell Distribution Width 19.1 % Platelet Count 324 TH/MM3 Mean Platelet Volume 8.5 FL Neutrophils (%) (Auto) 74.1 % Lymphocytes (%) (Auto) 8.9 % Monocytes (%) (Auto) 6.7 % Eosinophils (%) (Auto) 8.3 % Basophils (%) (Auto) 2.0 % Neutrophils # (Auto) 9.6 TH/MM3 Lymphocytes # (Auto) 1.2 TH/MM3 Monocytes # (Auto) 0.9 TH/MM3 Eosinophils # (Auto) 1.1 TH/MM3 Basophils # (Auto) 0.3 TH/MM3 CBC Comment AUTO DIFF Prothrombin Time 11.7 SEC Prothromb Time International Ratio 1.1 RATIO Activated Partial Thromboplast Time 26.6 SEC Blood Urea Nitrogen 18 MG/DL Creatinine 1.30 MG/DL Random Glucose 121 MG/DL Total Protein 6.8 GM/DL Albumin 3.4 GM/DL Calcium Level 8.4 MG/DL Magnesium Level 2.2 MG/DL Aspartate Amino Transf (AST/SGOT) 12 U/L Alanine Aminotransferase (ALT/SGPT) 20 U/L Total Bilirubin 0.4 MG/DL Sodium Level 136 MEQ/L Potassium Level 4.0 MEQ/L Chloride Level 103 MEQ/L Carbon Dioxide Level 25.7 MEQ/L Anion Gap 7 MEQ/L Estimat Glomerular Filtration Rate 54 ML/MIN Lipase 106 U/L [facility] Medical Decision Making Medical Screen Exam Complete: Yes Emergency Medical Condition: Yes Medical Record Reviewed: Yes Interpretation(s) EKG at 2316: NSR at 72bpm, qt/qtc: 411/435, rbbb Differential Diagnosis ACS, arrhythmia, electrolyte abnormality, PE, pneumothorax, GERD Narrative Course Patient is a 76-year-old male who presents to emergency room with complaints of chest pain which began around 8 PM tonight. Patient reports substernal chest pain which pelvic a "pressure to his chest" During the course of the patients emergency department visit, the patients history, examination, and differential diagnosis were reviewed with the patient. The patient was placed on a transportation technician with oximetry and frequent blood pressure monitoring. The patient had [-] IV access obtained and blood work sent for analysis. The patient was initially provided aspirin 162 mg, sublingual nitroglycerin. Patient will be for chest pain occurs 3 sublingual nitroglycerin were administered. Patient signed out to Dr. Farooq at change of shift, pending labs and admission to hospital Diagnosis Primary Impression: Chest pain Qualified Codes: R07.9 - Chest pain, unspecified Admitting Information Admitting Physician Requests: Bella Galindo DO Feb 06, 2017 23:23
[2017-02-06 23:32] VITALS: BP 150/68; PULSE 75; RESP 18; O2SAT 99
[2017-02-06] MEDS: NITROGLYCERIN 0.4 MG SL 25 TABS/BTL SL SCH ×3 (23:32→23:43)
[2017-02-06 23:34] LABS: AUTOMATED NEUTROPHIL # 9.6 TH/MM3 (1.8-7.7); BASOPHIL # 0.3 TH/MM3 (0-0.2); EOSINOPHIL # 1.1 TH/MM3 (0-0.4); EOSINOPHIL % 8.3 % (0.0-4.0); HEMATOCRIT 36.8 % (39.0-51.0); LYMPH % 8.9 % (9.0-44.0); LYMPHOCYTE # 1.2 TH/MM3 (1.0-4.8); MEAN CELL VOLUME 72.5 FL (80.0-100.0); MEAN CORPUSCULAR HEMOGLOBIN 23.2 PG (27.0-34.0); MONO % 6.7 % (0.0-8.0); NEUT % 74.1 % (16.0-70.0); PLATELET COUNT 324 TH/MM3 (150-450); RED BLOOD COUNT 5.08 MIL/MM3 (4.50-5.90); RED CELL DISTRIBUTION WIDTH 19.1 % (11.6-17.2); WHITE BLOOD COUNT 13.1 TH/MM3 (4.0-11.0)
[2017-02-06 23:36] VITALS: RESP 18; O2SAT 99
[2017-02-06 23:37] VITALS: BP 106/63; PULSE 80; RESP 18; O2SAT 98
[2017-02-06 23:43] VITALS: BP 102/60; PULSE 80; RESP 18; O2SAT 95
[2017-02-06 23:47] LABS: CHLORIDE 103 MEQ/L (98-107); SODIUM (NA) 136 MEQ/L (136-145)
[2017-02-06 23:48] VITALS: BP 92/54; PULSE 78; RESP 18; O2SAT 95
--- NOTE | 2017-02-06 23:48 | RADRPT ---
EXAM DATE/TIME: 02/06/2017 23:27 [place] COMPARISON: CHEST SINGLE AP, January 31, 2010, 22:56. INDICATIONS : Chest pain. MEDICAL HISTORY : Hypertension. Coronary artery disease. SURGICAL HISTORY : CABG. ENCOUNTER: Initial ACUITY: 1 day PAIN SCORE: 4/10 LOCATION: chest substernal. FINDINGS: No infiltrate, effusion or pneumothorax. Heart size stable, normal. CABG changes are now noted. CONCLUSION: No evidence of acute cardiopulmonary disease. Jet Damian MD on February 06, 2017 at 23:46 Board Certified Radiologist. This report was verified electronically.
[2017-02-06 23:51] LABS: ANION GAP 7 MEQ/L (5-15); BICARBONATE 25.7 MEQ/L (21.0-32.0); BLOOD UREA NITROGEN 18 MG/DL (7-18); MAGNESIUM 2.2 MG/DL (1.5-2.5)
[2017-02-06 23:52] LABS: APTT (PATIENT) 26.6 SEC (24.3-30.1); INTERNATIONAL NORMALIZED RATIO 1.1 RATIO; PROTHROMBIN TIME - PATIENT 11.7 SEC (9.8-11.6)
[2017-02-06 23:54] LABS: ALT (GPT) 20 U/L (12-78); AST (GOT) 12 U/L (15-37); GLOMERULAR FILTRATION RATE 54 ML/MIN (>89)
[2017-02-06 23:55] LABS: TOTAL BILIRUBIN ADULT 0.4 MG/DL (0.2-1.0)
[2017-02-06 23:57] LABS: ALKALINE PHOSPHATASE 66 U/L (45-117)
[2017-02-07] VITALS (9 sets, daily range): BP systolic 87–130; BP diastolic 54–72; PULSE 68–74; RESP 16–18; TEMP 97.2–98; O2SAT 94–99
[2017-02-07] LABS: HEMO FLAGS AUTO DIFF
[2017-02-07] MEDS ORDERED: SODIUM CHLORID 0.9% 500 ML INJ 500 ML IV ONE
--- NOTE | 2017-02-07 00:04 | PD ---
Physical Exam Date Seen by Provider: Feb 07, 2017 Time Seen by Provider: 00:01 Narrative Accepted in transfer of care from Dr. Centeno Data Data Last Documented VS Vital Signs Date Time Temp Pulse Resp B/P (MAP) Pulse Ox O2 Delivery O2 Flow Rate FiO2 02/07/17 00:45 74 16 112/56 (74) 99 Room Air 02/06/17:17 98.1 Orders Orders Electrocardiogram (02/06/17 23:15) B-Type Natriuretic Peptide (02/06/17 23:15) Ckmb (Isoenzyme) Profile (02/06/17 23:15) Complete Blood Count With Diff (02/06/17 23:15) Comprehensive Metabolic Panel (02/06/17 23:15) Magnesium (Mg) (02/06/17 23:15) Prothrombin Time / Inr (Pt) (02/06/17 23:15) Act Partial Throm Time (Ptt) (02/06/17 23:15) Troponin I (02/06/17 23:15) Lipase (02/06/17 23:15) Chest, Single Ap (02/06/17 23:15) Ecg Monitoring (02/06/17 23:15) Iv Access Insert/Monitor (02/06/17 23:15) Oximetry (02/06/17 23:15) Aspirin Chew (Aspirin Chew) (02/06/17 23:15) Sodium Chloride 0.9% Flush (Ns Flush) (02/06/17 23:15) Nitroglycerin Sl (Nitrostat Sl) (02/06/17 23:15) Sodium Chlorid 0.9% 500 Ml Inj (Ns 500 M (02/07/17 00:00) Aspirin Chew (Aspirin Chew) (02/07/17 09:00) Atorvastatin (Lipitor) (02/07/17 21:00) Mesalamine Hd (Asacol Hd Dr) (02/07/17 09:00) Metoprolol Tartrate (Lopressor) (02/07/17 09:00) (Nf) Omeprazole (02/07/17 09:00) Admit Order (Ed Use Only) (02/07/17 ) Bellperson / Telemetry SUMAYA.Q8H (02/07/17 00:57) Diet Heart Healthy (02/07/17 Breakfast) Activity Oob With Assistance (02/07/17 00:57) Notify Dr: Other (02/07/17 00:57) Activity Bed Rest With Brp (02/07/17 00:57) Vital Signs (Adult) Q4H (02/07/17 00:57) Cardiac Rhythm .As Directed (02/07/17 00:57) Notify Dr: Tavo .PRN (02/07/17 00:57) Notify Parameters (02/07/17 00:57) Resp Oxygen Nasal Cannula (02/07/17 ) Ckmb (Isoenzyme) Profile (02/07/17 02:25) Ckmb (Isoenzyme) Profile (02/07/17 05:25) Troponin I (02/07/17 02:25) Troponin I (02/07/17 05:25) Electrocardiogram (02/07/17 02:25) Electrocardiogram (02/07/17 05:25) ^ Obtain (02/07/17 00:57) Sodium Chloride 0.9% Flush (Ns Flush) (02/07/17 01:00) Sodium Chloride 0.9% Flush (Ns Flush) (02/07/17 09:00) Acetaminophen (Tylenol) (02/07/17 01:00) Acetamin-Hydrocod 325-7.5 Mg ([place] 7.5 (02/07/17 01:00) Morphine Inj (Morphine Inj) (02/07/17 01:00) Ondansetron Inj (Zofran Inj) (02/07/17 01:00) Nitroglycerin Sl (Nitrostat Sl) (02/07/17 01:00) Aspirin (Aspirin) (02/07/17 09:00) Bellperson / Telemetry SUMAYA.Q8H (02/07/17 00:57) Labs Laboratory Tests Test 02/06/17 23:25 White Blood Count 13.1 TH/MM3 Red Blood Count 5.08 MIL/MM3 Hemoglobin 11.8 GM/DL Hematocrit 36.8 % Mean Corpuscular Volume 72.5 FL Mean Corpuscular Hemoglobin 23.2 PG Mean Corpuscular Hemoglobin Concent 32.0 % Red Cell Distribution Width 19.1 % Platelet Count 324 TH/MM3 Mean Platelet Volume 8.5 FL Neutrophils (%) (Auto) 74.1 % Lymphocytes (%) (Auto) 8.9 % Monocytes (%) (Auto) 6.7 % Eosinophils (%) (Auto) 8.3 % Basophils (%) (Auto) 2.0 % Neutrophils # (Auto) 9.6 TH/MM3 Lymphocytes # (Auto) 1.2 TH/MM3 Monocytes # (Auto) 0.9 TH/MM3 Eosinophils # (Auto) 1.1 TH/MM3 Basophils # (Auto) 0.3 TH/MM3 CBC Comment AUTO DIFF Differential Comment AUTO DIFF CONFIRMED Platelet Estimate NORMAL Platelet Morphology Comment NORMAL Ovalocytes 2+ Prothrombin Time 11.7 SEC Prothromb Time International Ratio 1.1 RATIO Activated Partial Thromboplast Time 26.6 SEC Blood Urea Nitrogen 18 MG/DL Creatinine 1.30 MG/DL Random Glucose 121 MG/DL Total Protein 6.8 GM/DL Albumin 3.4 GM/DL Calcium Level 8.4 MG/DL Magnesium Level 2.2 MG/DL Alkaline Phosphatase 66 U/L Aspartate Amino Transf (AST/SGOT) 12 U/L Alanine Aminotransferase (ALT/SGPT) 20 U/L Total Bilirubin 0.4 MG/DL Sodium Level 136 MEQ/L Potassium Level 4.0 MEQ/L Chloride Level 103 MEQ/L Carbon Dioxide Level 25.7 MEQ/L Anion Gap 7 MEQ/L Estimat Glomerular Filtration Rate 54 ML/MIN Total Creatine Kinase 91 U/L Troponin I LESS THAN 0.02 NG/ML B-Type Natriuretic Peptide 100 PG/ML Lipase 106 U/L [facility] Medical Record Reviewed: Yes Supervised Visit with BUFFY: No Interpretation(s) EKG: sinus rhythm rate 72 right bundle branch block is noted nonspecific T-wave inversion in V1 and V2 no acute ST segment elevation CBC & BMP Diagram 02/06/17 23:25 Total Protein 6.8, Albumin 3.4, Calcium Level 8.4 L, Magnesium Level 2.2, Alkaline Phosphatase 66, Aspartate Amino Transf (AST/SGOT) 12 L, Alanine Aminotransferase (ALT/SGPT) 20, Total Bilirubin 0.4 Last Impressions Chest X-Ray 02/06/17 3681 Signed Impressions: Service Date/Time: Monday, February 06, 2017 23:27 - CONCLUSION: No evidence of acute cardiopulmonary disease. Jet Damian MD CK: 91, not elevated; troponin I less than 0.02, not elevated; BNP: 100, not elevated Differential Diagnosis Accepted in transfer of care from Dr. Centeno; please refer to her dictation Narrative Course Accepted in transfer of care from Dr. Centeno; follow labs and admission Patient lab values grossly normal range specifically CK total is 91, not elevated troponin I is less than 0.02, not elevated patient's blood pressure has returned to normal range after a 500 cc bolus of normal saline and patient' s chest pain is 0/10 in intensity. Patient's case discussed with on-call [facility] MD --will admit OBS to chest pain center Physician Communication Physician Communication Patient discussed with on-call [facility] MD Dr Cortez for chest pain center observation admission Diagnosis Primary Impression: Chest pain Qualified Codes: R07.9 - Chest pain, unspecified Admitting Information Admitting Physician Requests: Observation Kori Farooq MD Feb 07, 2017 00:04
[2017-02-07 00:05] LABS: CREATINE KINASE 91 U/L (39-308)
[2017-02-07 00:17] LABS: OVALOCYTES 2+ (NORMAL); PLATELET ESTIMATE SMEAR NORMAL (NORMAL); PLATELET MORPHOLOGY NORMAL (NORMAL); SCAN/DIFF AUTO DIFF CONFIRMED
[2017-02-07] MEDS ORDERED: ATOR40TA16 PO (00:51)
[2017-02-07] MEDS ORDERED: OMEP20TA93 PO (00:51)
[2017-02-07] MEDS ORDERED: METO25TA3 PO (00:51)
[2017-02-07] MEDS ORDERED: ASAC800T PO (00:51)
[2017-02-07] MEDS ORDERED: ONDANSETRON HCL 4 MG/2 ML VIAL IV PUSH PRN (01:00)
[2017-02-07] MEDS ORDERED: ACETAMINOPHEN 500 MG CPLT PO PRN (01:00)
[2017-02-07] MEDS ORDERED: ACETAMINOPHEN/HYDROcodone 325 MG/7.5 MG TAB PO PRN (01:00)
[2017-02-07] MEDS ORDERED: SODIUM CHLORIDE 0.9% FLUSH 10 ML FLUSH IV FLUSH PRN (01:00)
[2017-02-07] MEDS ORDERED: NITROGLYCERIN 0.4 MG SL 25 TABS/BTL SL PRN (01:00)
[2017-02-07] MEDS ORDERED: MORPHINE SULFATE 2 MG/ML INJ IV PRN (01:30)
[2017-02-07 04:16] LABS: CREATINE KINASE 86 U/L (39-308)
[2017-02-07 06:14] LABS: CREATINE KINASE 70 U/L (39-308)
--- NOTE | 2017-02-07 07:27 | EKG ---
Date Performed: 02/06/2017 Time Performed: 23:16:19 PTAGE: 76 years EKG: Sinus rhythm RIGHT BUNDLE BRANCH BLOCK ABNORMAL ECG Since PREVIOUS TRACING , no significant change noted PREVIOUS TRACIN04/11/2016 11.28 DOCTOR: Trinity Hoover Interpretating Date/Time 02/07/2017 07:25:55
--- NOTE | 2017-02-07 07:27 | EKG ---
Date Performed: 02/07/2017 Time Performed: 02:46:54 PTAGE: 76 years EKG: Sinus rhythm RIGHT BUNDLE BRANCH BLOCK ABNORMAL ECG PREVIOUS TRACING : 02/06/2017 23.16 DOCTOR: Trinity Hoover Interpretating Date/Time 02/07/2017 07:26:08
--- NOTE | 2017-02-07 07:28 | EKG ---
Date Performed: 02/07/2017 Time Performed: 05:37:55 PTAGE: 76 years EKG: Sinus rhythm RIGHT BUNDLE BRANCH BLOCK ABNORMAL ECG Since PREVIOUS TRACING , no significant change noted PREVIOUS TRACIN02/07/2017 02.46 DOCTOR: Trinity Hoover Interpretating Date/Time 02/07/2017 07:26:29
[2017-02-07 07:36] LABS: AUTOMATED NEUTROPHIL # 11.3 TH/MM3 (1.8-7.7); BASOPHIL % 0.3 % (0.0-2.0); EOSINOPHIL # 0.8 TH/MM3 (0-0.4); EOSINOPHIL % 5.4 % (0.0-4.0); HEMO FLAGS AUTO DIFF; LYMPH % 7.6 % (9.0-44.0); LYMPHOCYTE # 1.1 TH/MM3 (1.0-4.8); MEAN CORPUSCULAR HGB CONC 32.4 % (32.0-36.0); NEUT % 78.7 % (16.0-70.0); PLATELET COUNT 312 TH/MM3 (150-450); RED CELL DISTRIBUTION WIDTH 19.5 % (11.6-17.2); WHITE BLOOD COUNT 14.3 TH/MM3 (4.0-11.0)
[2017-02-07 08:35] LABS: KERATOCYTES OCC (NORMAL); OVALOCYTES 1+ (NORMAL)
[2017-02-07 08:36] LABS: SCAN/DIFF AUTO DIFF CONFIRMED
[2017-02-07] MEDS ORDERED: ASPIRIN 81 MG CHEW TAB CHEW SCH (09:00)
[2017-02-07] MEDS ORDERED: METOPROLOL TARTRATE 25 MG TAB PO SCH (09:00)
[2017-02-07] MEDS ORDERED: ASPIRIN 325 MG TAB PO SCH (09:00)
[2017-02-07] MEDS ORDERED: SODIUM CHLORIDE 0.9% FLUSH 10 ML FLUSH IV FLUSH SCH (09:00)
[2017-02-07] MEDS ORDERED: MESALAMINE HD 800 MG DELAYED RELEASE TAB PO SCH (09:00)
[2017-02-07] MEDS ORDERED: PANTOPRAZOLE SOD 20 MG DELAYED RELEASE TAB PO SCH (09:00)
--- NOTE | 2017-02-07 09:27 | HHI.HP ---
HPI Service [facility] Primary Care Physician Isreal Jade MD Admission Diagnosis chest pain, h/o cad Diagnoses: (1) Chest pain Diagnosis: Principal Chief Complaint: Chest pain Travel History International Travel<30 Days: No Contact w/Intl Traveler <30 Da: No Traveled to Known Affected Are: No History of Present Illness Written by Benjamin Salguero, acting as scribe for Dr. Scott on 02/07/17 at 09 :26. 76-year-old male with known history of coronary artery disease, hypertension and gastric reflux who presented to hospital with chest pain. Patient indicates that he was in his normal state of health until yesterday approximately 8 PM when he developed left-sided chest discomfort which was constant with associated nausea, vomiting, lightheadedness, dizziness. He states the chest discomfort was 8/10 on a pain scale. He described his as a sharp pressure like discomfort. The patient took 2 antacids as well as omeprazole without any significant relief. The pain lasted for over 2 hours and when it did not resolve he came to the emergency department for evaluation. Patient indicates that he was given nitroglycerin in the emergency department with complete resolution of his discomfort. The patient does have history of four-vessel bypass surgery in April of this year at the [facility]. He has appointment on February 17, 2017 for full cardiac evaluation to include nuclear stress test. Patient indicates that he is asymptomatic at this time. He would like to go home and follow-up with [facility]. Review of Systems Constitutional: COMPLAINS OF: Dizziness Cardiovascular: COMPLAINS OF: Chest pain Gastrointestinal: COMPLAINS OF: Nausea, Vomiting Except as stated in HPI: all other systems reviewed are Neg Past Family Social History Past Medical History Hypertension Coronary artery disease Ulcerative colitis Gastroesophageal reflux Osteoarthritis Lumbar degenerative disc disease Past Surgical History Coronary bypass surgery 4 vessel April, Bilateral total knee replacement Lumbar disc surgery Colonoscopy/EGDs Excision of squamous cell carcinoma Reported Medications Reported Meds & Active Scripts Active Reported Asacol HD (Mesalamine) 800 Mg Tab 1,600 Mg PO TID Swallow whole. Take on an empty stomach. Metoprolol Tartrate 25 Mg Tab 25 Mg PO BID Omeprazole 20 Mg Tab 20 Mg PO DAILY Atorvastatin (Atorvastatin Calcium) 40 Mg Tab 40 Mg PO HS Aspirin 81 Mg Chew 81 Mg CHEW DAILY Allergies: Coded Allergies: iodine (Unverified Allergy, Severe, SHELLFISH = ITCHING, 02/06/17) potassium iodide (Unverified Allergy, Severe, SHELLFISH = ITCHING, ) povidone-iodine (Unverified Allergy, Severe, SHELLFISH = ITCHING, 02/06/17 ) sodium iodide (Unverified Allergy, Severe, SHELLFISH = ITCHING, 02/06/17) sodium iodide (Unverified Allergy, Severe, SHELLFISH = ITCHING, 02/06/17) Family History Reviewed and significant for brother in mid 50s from aortic aneurysm. Social History Patient denies any tobacco, alcohol or illicit drugs Physical Exam Vital Signs Vital Signs Date Time Temp Pulse Resp B/P (MAP) Pulse Ox O2 Delivery O2 Flow Rate FiO2 02/07/17 07:51 98.0 74 16 130/72 (91) 97 02/07/17 07:42 97 21 02/07/17 02:35 97 21 02/07/17 02:11 70 02/07/17 02:11 97.2 71 18 123/60 (81) 98 02/07/17 01:30 02/07/17 00:45 74 16 112/56 (74) 99 Room Air 02/07/17 00:32 74 16 98/54 (69) 94 Room Air 02/07/17 00:17 72 16 94/55 (68) 94 Room Air 02/07/17 00:02 74 16 87/54 (65) 95 Room Air 02/06/17 23:48 78 18 92/54 (67) 95 Room Air 02/06/17 23:48 18 02/06/17 23:43 80 18 102/60 (74) 95 Room Air 02/06/17 23:37 80 18 106/63 (77) 98 Room Air 02/06/17 23:36 18 99 Room Air 02/06/17 23:32 75 18 150/68 (95) 99 Room Air 02/06/17 23:20 Room Air 02/06/17 23:17 98.1 75 18 140/84 (102) 95 Physical Exam GENERAL: Well-developed, well-nourished, in no acute distress. alert and orientated HEENT: Head is normocephalic without any lesions or masses noted. Facial features are symmetric. Eyes: Pupils equal round reactive to light. Extraocular muscles are intact. Conjunctivae were clear. Oropharyngeal: Pharynx without any erythema edema. Tongue is midline without deviation. Buccal mucosa is moist without any masses or lesions NECK: Supple without any masses. Trachea midline no deviation. No JVD, no bruits are appreciated CARDIAC: Regular rhythm, regular rate. S1/S2 are heard. No murmurs gallops or rubs. LUNGS: Clear to auscultation bilaterally. No wheeze, rhonchi or rales. No use of accessory muscles on inspiration or expiration. ABDOMEN: Soft, nontender. Nondistended. Bowel sounds heard in all 4 quadrants. No organomegaly or masses. Negative rebound, negative guarding EXTREMITIES: No edema, pulses are equal bilaterally. No cyanosis or clubbing NEUROLOGY: Mood and affect appear appropriate. Cranial nerves II through XII grossly intact. Muscle strength 5/5 in upper and lower extremities bilaterally. Deep tendon reflexes are 2+ in upper and lower extremities bilaterally. Laboratory Laboratory Tests Test 02/06/17 23:25 02/07/17 02:30 02/07/17 05:00 White Blood Count 13.1 14.3 Red Blood Count 5.08 4.60 Hemoglobin 11.8 11.0 Hematocrit 36.8 34.0 Mean Corpuscular Volume 72.5 74.0 Mean Corpuscular Hemoglobin 23.2 24.0 Mean Corpuscular Hemoglobin Concent 32.0 32.4 Red Cell Distribution Width 19.1 19.5 Platelet Count 324 312 Mean Platelet Volume 8.5 9.2 Neutrophils (%) (Auto) 74.1 78.7 Lymphocytes (%) (Auto) 8.9 7.6 Monocytes (%) (Auto) 6.7 8.0 Eosinophils (%) (Auto) 8.3 5.4 Basophils (%) (Auto) 2.0 0.3 Neutrophils # (Auto) 9.6 11.3 Lymphocytes # (Auto) 1.2 1.1 Monocytes # (Auto) 0.9 1.1 Eosinophils # (Auto) 1.1 0.8 Basophils # (Auto) 0.3 0.0 CBC Comment AUTO DIFF AUTO DIFF Differential Comment AUTO DIFF CONFIRMED AUTO DIFF CONFIRMED Platelet Estimate NORMAL Platelet Morphology Comment NORMAL Ovalocytes 2+ 1+ Prothrombin Time 11.7 Prothromb Time International Ratio 1.1 Activated Partial Thromboplast Time 26.6 Blood Urea Nitrogen 18 Creatinine 1.30 Random Glucose 121 Total Protein 6.8 Albumin 3.4 Calcium Level 8.4 Magnesium Level 2.2 Alkaline Phosphatase 66 Aspartate Amino Transf (AST/SGOT) 12 Alanine Aminotransferase (ALT/SGPT) 20 Total Bilirubin 0.4 Sodium Level 136 Potassium Level 4.0 Chloride Level 103 Carbon Dioxide Level 25.7 Anion Gap 7 Estimat Glomerular Filtration Rate 54 Total Creatine Kinase 91 86 70 Troponin I LESS THAN 0.02 LESS THAN 0.02 LESS THAN 0.02 B-Type Natriuretic Peptide 100 Lipase 106 Keratocytes OCC Result Diagram: 02/07/17 0500 02/06/172324 Imaging Last Impressions Chest X-Ray 02/06/172314 Signed Impressions: Service Date/Time: Monday, February 06, 2017 23:27 - CONCLUSION: No evidence of acute cardiopulmonary disease. Jet Damian MD [place] VTE Risk Assessment Caprini VTE Risk Assessment: Mod/High Risk (score >= 2) Caprini Risk Assessment Model Point Value = 1 Point Value = 2 Point Value = 3 Point Value = 5 Age 41-60 Minor surgery BMI > 25 kg/m2 Swollen legs Varicose veins or History of unexplained or recurrent spontaneous Oral contraceptives or hormone replacement Sepsis (< 1 month) Serious lung disease, including pneumonia (< 1 month) Abnormal pulmonary function Acute myocardial infarction Congestive heart failure (< 1 month) History of inflammatory bowel disease Medical patient at bed rest Age 61-74 Arthroscopic surgery Major open surgery (> 45 min) Laparoscopic surgery (> 45 min) Malignancy Confined to bed (> 72 hours) Immobilizing plaster cast Central venous access Age >= 75 History of VTE Family history of VTE Factor V Leiden Prothrombin [id number] Lupus anticoagulant Anticardiolipin antibodies Elevated serum homocysteine Heparin-induced thrombocytopenia Other congenital or acquired thrombophilia Stroke (< 1 month) Elective arthroplasty Hip, pelvis, or leg fracture Acute spinal cord injury (< 1 month) Prophylaxis Regimen Total Risk Factor Score Risk Level Prophylaxis Regimen 0-1 Low Early ambulation 2 Moderate Order ONE of the following: *Sequential Compression Device (SCD) *Heparin 5000 units SQ BID 3-4 Higher Order ONE of the following medications: *Heparin 5000 units SQ TID *Enoxaparin/Lovenox 40 mg SQ daily (WT < 150 kg, CrCl > 30 mL/min) *Enoxaparin/Lovenox 30 mg SQ daily (WT < 150 kg, CrCl > 10-29 mL/min) *Enoxaparin/Lovenox 30 mg SQ BID (WT < 150 kg, CrCl > 30 mL/min) AND/OR *Sequential Compression Device (SCD) 5 or more Highest Order ONE of the following medications: *Heparin 5000 units SQ TID (Preferred with Epidurals) *Enoxaparin/Lovenox 40 mg SQ daily (WT < 150 kg, CrCl > 30 mL/min) *Enoxaparin/Lovenox 30 mg SQ daily (WT < 150 kg, CrCl > 10-29 mL/min) *Enoxaparin/Lovenox 30 mg SQ BID (WT < 150 kg, CrCl > 30 mL/min) AND *Sequential Compression Device (SCD) Assessment and Plan Problem List: (1) Atypical chest pain ICD Code: R07.89 - Other chest pain Assessment and Plan Chest pain, typical Patient with increased risk factors to include age, male, hypertension, hyperlipidemia, coronary artery disease Patient had been ruled out for acute coronary event with serial cardiac enzymes that have remained negative Serial EKGs were performed which showed right bundle branch block without any changes Was planning to pursue nuclear stress test rule out any underlying ischemia, however patient is deferring at this time. Patient does not want to have stress test done here, he was to keep his appointment with [facility] in 10 days. Patient was counseled on the need to pursue further workup at this time and was notified of risks if he does not have testing done to include worsening pain , acute heart attack, and even Hypertension home medications continued Blood pressure stable this time Ulcerative colitis Home medications have been continued Discharge disposition Discharge home in stable condition, patient was counseled on continuing treatment in the hospital until workup complete. Patient is deferring stress test at this time and will keep his appointment with his unit educator in 10 days for full cardiac workup. Patient was notified to call his unit educator today to try to get an earlier appointment. Activity: Patient is to take it easy, no driving until evaluated by unit educator Diet: Healthy heart diet Medications per medication reconciliation Follow-up primary medical doctor in one week This note was transcribed by peter Salguero. I, Dr. Jeffry Scott personally performed the history, physical exam, and medical decision making; and confirmed the accuracy of the information in the transcribed note. Authenticated by Dr. Jeffry Scott on 02/07/17 at 09:26. Code Status Full code Discussed Condition With Patient , Problem Qualifiers (1) Chest pain: Qualified Codes: R07.9 - Chest pain, unspecified Benjamin Salguero Feb 07, 2017 09:27 Jeffry Scott MD Feb 07, 2017 09:27
--- NOTE | 2017-02-07 09:29 | HHI.DCPOC ---
Discharge Care Plan Diagnosis: (1) Chest pain Your Health Problems Are: Chest Pain Goals to Promote Your Health * To prevent worsening of your condition and complications * To maintain your health at the optimal level Directions to Meet Your Goals Take your medications as prescribed Follow your dietary instruction Follow activity as directed Keep your appointments as scheduled Take your immunizations and boosters as scheduled If your symptoms worsen call your PCP, if no PCP go to Urgent Care Center or Emergency Room Smoking is Dangerous to Your Health. Avoid second hand smoke Call the 24-hour hour crisis hotline for domestic abuse at Benjamin Salguero Feb 07, 2017 09:29
[2017-02-07] MEDS ORDERED: NITR1SUB3 SL (10:02)
[2017-02-07] MEDS ORDERED: ATORVASTATIN 40 MG TAB PO SCH (21:00)
== END 2017-02-07 10:07 | disposition home or self-care (01) ==
LOC: PHED 22:59 → PHEDA 02-07 01:01 → PH3A 02-07 02:00
PROVIDERS: ADMIT Hospitalist; ATTEND Hospitalist
DX: R07.89 Other chest pain (principal); R11.2 Nausea with vomiting, unspecified; R42 Dizziness and giddiness; I25.10 Atherosclerotic heart disease of native coronary artery without angina pectoris; I10 Essential (primary) hypertension; I45.10 Unspecified right bundle-branch block; R94.31 Abnormal electrocardiogram [ECG] [EKG]; K21.9 Gastro-esophageal reflux disease without esophagitis; E78.00 Pure hypercholesterolemia, unspecified; M51.36 Other intervertebral disc degeneration, lumbar region; K51.90 Ulcerative colitis, unspecified, without complications; G47.30 Sleep apnea, unspecified; F41.9 Anxiety disorder, unspecified; H91.90 Unspecified hearing loss, unspecified ear; M19.90 Unspecified osteoarthritis, unspecified site; Z95.1 Presence of aortocoronary bypass graft; Z96.653 Presence of artificial knee joint, bilateral; Z85.828 Personal history of other malignant neoplasm of skin; Z79.899 Other long term (current) drug therapy; Z79.82 Long term (current) use of aspirin
CPT/HCPCS: 71010; 80053; 82550; 83690; 83735; 83880; 84484; 85025; 85610; 85730; 93005; 99285; G0378; J7040